=== PATIENT | male | born 1965 | race Two or more races ===

== ENCOUNTER → 2024-06-11 | Emergency (ER) | payer OTHER ==
[~2024-06-11] VITALS: Ht 172.7 cm; Wt 90.7 kg
[~2024-06-11] MED LIST: KETOROLAC TROMETHAMINE 30 MG VIAL IV STA; KETOROLAC TROMETHAMINE 30 MG VIAL ONE
[2024-06-11 09:05] LABS: HEMATOCRIT 41.6 % (39.0-48.0); MEAN CELL VOLUME 83.9 fL (80.0-100.00); MEAN CORPUSCULAR HEMOGLOBIN 28.2 pg (27.00-32.0); MEAN CORPUSCULAR HGB CONC 33.6 g/dl (32.0-36.0); PLATELET COUNT 332 K/uL (150-450); RED BLOOD COUNT 4.95 M/uL (4.00-6.00); RED CELL DISTRIBUTION WIDTH 15.3 % (11.5-14.5)
[2024-06-11 09:14] LABS: BILIRUBIN TOTAL 0.26 mg/dL (0.3-1.2); CALCIUM 9.3 mg/dL (8.5-10.1); CREATININE SERUM 0.81 mg/dL (0.70-1.30); GFR 97.53; GLOBULINA 3.7 G/DL (2.4-3.5); POTASSIUM 3.97 mEq/L (3.5-5.1); TOTAL PROTEIN 6.7 gm/dL (6.4-8.2)
== END | disposition home or self-care (01) ==
LOC: ER 02:03
DX: R22.43 Localized swelling, mass and lump, lower limb, bilateral (principal); Z88.2 Allergy status to sulfonamides; Z88.8 Allergy status to other drugs, medicaments and biological substances